=== PATIENT | male | born 1990 | race African-American/Black ===

== ENCOUNTER 2023-12-01 10:29 | Emergency (ER) | payer SELFPAY ==
[~2023-12-01] VITALS: Ht 193 cm; Wt 105.5 kg
[2023-12-01 10:48] VITALS: BP 170/128; TEMP 98.3
[2023-12-01] MEDS ORDERED: AMOXICILLIN 8751 TAB PO (11:49)
[2023-12-01 12:00] VITALS: PULSE 90
[2023-12-01] MEDS ORDERED: Acetaminophen 500 MG TAB PO ONE (12:00)
[2023-12-01] MEDS ORDERED: Ibuprofen 400 MG TAB PO ONE (12:00)
== END 2023-12-01 12:00 | disposition home or self-care (01) ==
LOC: COL.ER 10:29
DX: S02.5XXA Fracture of tooth (traumatic), initial encounter for closed fracture (principal); K05.30 Chronic periodontitis, unspecified; F17.200 Nicotine dependence, unspecified, uncomplicated; X58.XXXA Exposure to other specified factors, initial encounter